=== PATIENT | male | born 1960 | race African-American/Black ===

== ENCOUNTER 2016-11-02 11:30 | Day surgery (SDC) | payer OTHER ==
[2016-10-29 10:35] VITALS: BMI 27.3
[2016-11-02] MEDS: GABAPENTIN 300 MG CAPSULE (FP) PO ONE ×2 (12:57→18:06)
[2016-11-02] MEDS ORDERED: LIDOCAINE 1%/EPI 1:100000 (50 ML MULTI DOSE VIAL) INF ONE (13:30)
[2016-11-02] MEDS ORDERED: MIDAZOLAM HCL 2 MG/2 ML SINGLE DOSE VIAL ONE (14:19)
--- NOTE | 2016-11-02 14:19 | HP ---
History & Physical Update - Physical Physical: No Change - Assessment Assessment: No Change - Plan Plan: No Change
[2016-11-02] MEDS ORDERED: LIDOCAINE HCL 2% 100 MG/5 ML DISP.SYRIN ONE (15:00)
[2016-11-02] MEDS ORDERED: ceFAZolin SODIUM 1 GM VIAL ONE (15:08)
[2016-11-02] MEDS ORDERED: ONDANSETRON 4 MG/2 ML VIAL ONE (15:14)
[2016-11-02] MEDS ORDERED: DEXAMETHASONE SOD PHOSPHATE 4 MG/1 ML VIAL ONE (15:14)
[2016-11-02] MEDS ORDERED: HYDROmorphone HCL/PF 1 MG/ML VIAL (FOR PYXIS CHARGING ONLY) ONE (15:24)
[2016-11-02] MEDS ORDERED: GLYCOPYRROLATE 0.2 MG/1 ML VIAL ONE (15:27)
[2016-11-02] MEDS ORDERED: NEOSTIGMINE METHYLSULFATE 0.5 MG/ML - 10 ML MDV ONE (15:27)
[2016-11-02] MEDS ORDERED: PROPOFOL 20 ML ONE ×5 (15:51→16:52)
[2016-11-02] MEDS ORDERED: GUM MASTIC/STORAX/MSAL/ALCOHOL 1 DRP DROPSBTL MC ONE (17:05)
[2016-11-02] MEDS ORDERED: BUPIVACAINE HCL/PF 0.25% (2.5MG/ML) 10 ML VIAL IJ ONE (17:09)
[2016-11-02] MEDS ORDERED: ONDANSETRON 4 MG/2 ML VIAL IVPUSH PRN (17:25)
[2016-11-02] MEDS ORDERED: ACETAMINOPHEN INJECTION 100 ML IVPB ONE (17:28)
--- NOTE | 2016-11-02 17:28 | OP ---
Operative Note - Note: Operative Date: 11/02/16 Pre-Operative Diagnosis: cervical stenosis Operation: anterior cervical fusion Post-Operative Diagnosis: Same as Pre-op Surgeon: Humberto Randolph Tool And Die Maker Apprentice: Eileen Costa Anesthesiologist/CALENDER MACHINE OPERATOR: Ramandeep Shetty Anesthesia: Spinal Specimens Removed: C5-C6, and C6-C7 disc Estimated Blood Loss (mls): 20 Fluid Volume Replaced (mls): 1,350 Operative Report Dictated: Yes
[2016-11-02] MEDS ORDERED: ACETAMINOPHEN 1000 MG/100 ML VIAL (NON FORMULARY) IVPB ONE ×2 (17:30→17:40)
[2016-11-02] MEDS ORDERED: LACTATED RINGERS SOLUTION 1,000 ML IV SCH ×2 (17:30→17:45)
--- NOTE | 2016-11-02 17:34 | SURG ---
Surgery Finish Photographer Note Finish Photographer: Eileen Costa PA-C Date of Service: 11/02/16 Diagnosis: cervical stenosis Procedure: anterior cervical fusion C5-C6 and C6-C7 I was present for the entirety of the operative procedure. For further detail, please refer to operative report. Visit type - Case Type Case Type: Scheduled Admission - Emergency Emergency Visit: No - New patient This patient is new to me today: Yes Date on this admission: 11/02/16 - Critical Care Critical Care patient: No
[2016-11-02] MEDS ORDERED: ONDANSETRON 4 MG/2 ML VIAL IVPB PRN (17:35)
[2016-11-02] MEDS ORDERED: oxyCODONE HCL 5 MG TABLET PO PRN (17:35)
[2016-11-02] MEDS ORDERED: CYCLOBENZAPRINE HCL 10 MG TABLET (FP) PO PRN (17:49)
[2016-11-02] MEDS: PANTOPRAZOLE 40 MG TABLET (FP) PO SCH (18:45)
[2016-11-02] MEDS: morphine CARPU-JECT 4 MG/1 ML DISP.SYRIN IVPUSH PRN ×2 (19:50→23:41)
[2016-11-02] MEDS: GABAPENTIN 300 MG CAPSULE (FP) PO SCH (21:44)
[2016-11-02] MEDS ORDERED: ATORVASTATIN CA 40 MG TABLET (FP) PO SCH (22:00)
[2016-11-02] MEDS ORDERED: NEBIVOLOL 10 MG TABLET (FP) PO SCH (22:00)
[2016-11-02] MEDS ORDERED: PATIENT'S OWN MEDICATION (NON-FORMULARY) (Mirabegron [Myrbetriq] 50 MG) PO SCH (22:00)
[2016-11-02] MEDS: CEFAZOLIN (PRE-DOCKED) 50 ML IVPB SCH (22:36)
[2016-11-02] MEDS ORDERED: ACETAMINOPHEN 325 MG TABLET (FP) PO PRN (23:55)
[2016-11-03] MEDS: morphine CARPU-JECT 4 MG/1 ML DISP.SYRIN IVPUSH PRN (02:50)
[2016-11-03] MEDS: CEFAZOLIN (PRE-DOCKED) 50 ML IVPB SCH (06:16)
[2016-11-03] MEDS: GABAPENTIN 300 MG CAPSULE (FP) PO SCH (06:16)
[2016-11-03] MEDS: oxyCODONE HCL 5 MG TABLET PO PRN ×2 (06:17→10:27)
[2016-11-03 06:25] VITALS: BP 124/61; PULSE 60; TEMP 99
[2016-11-03] MEDS ORDERED: LEVOTHYROXINE NA 75 MCG TABLET (FP) PO SCH (07:00)
--- NOTE | 2016-11-03 07:05 | DS ---
[id number] Note: Physical Exam: SUBJECTIVE: Patient seen and examined. POD #1 s/p ACDF C5-C6, and C6-C7. Doing well. wearing his soft cervical collar. Using his incentive spirometer. States he has been out of bed and ambulated hallways as instructed. Prior to surgical procedure, patient c/o numbness to left hand (first 3 digits). S/p procedure numbness has completely resolved. He is tolerating liquid diet. Denies n/v/f/c, CP, SOB or hoarsness. OBJECTIVE: Last Vital Signs Temp Pulse Resp BP Pulse Ox 99.0 F 60 18 124/61 98 // 06:24 11/03/16 06:24 11/03/16 06:24 11/03/16 06:24 11/02/16 20:43 PHYSICAL EXAM GENERAL: The patient is awake, alert, and fully oriented, in no acute distress. HEAD: Normal with no signs of trauma. EYES: PERRL, extraocular movements intact, sclera anicteric, conjunctiva clear. NECK: Trachea midline, supple. No hematoma. Dressing c/d/i. Tello dc'd on rounds LUNGS: CTA b/l anteriorly HEART: RRR EXTREMITIES: 2+ pulses, warm, well-perfused, no edema. NEUROLOGICAL: CN II - XII grossly intact. Normal speech, gait not observed. PSYCH: Normal mood, normal affect. SKIN: Warm, dry, normal turgor, no rashes or lesions noted. HOSPITAL COURSE: Date of Admission:02/17 Date of Discharge: 11/03/ The patient was admitted to the Med-Surg Unit after an elective repair of their cervical stenosis & radiculopathy. Now, s/p ACDF C5-C6, and C6-C7. The day of surgery, the patient ambulated the hallways with assistance. Narcotic and non- narcotic pain management control was achieved with an oral and IV approach. POD #1, the surgical drain was removed fully intact and without incident. An xray was obtained and confirmed hardware placement at (C5/6, C6/7), no fractures or dislocations. Debbie-operative IV ABX were administered. DVT prophylaxis was achieved with SCDs and early ambulation. The patient ambulated with Physical Therapy and no services were recommended upon discharge. Narcotic scripts and or muscle relaxants were checked with [employer] [employer] prior to escribe. The discharge instructions and an oral pain management plan were reviewed with the patient. All questions answered. Above plan discussed with Dr. Randolph and agreed. Minutes to complete discharge: 15 <Agustin Argueta P - Last Filed: 11/03/16 06:48> Physical Exam: SUBJECTIVE: Patient seen and examined OBJECTIVE: Vital Signs Temperature 99.0 F 11/03/16 06:24 Pulse Rate 60 11/03/16 06:24 Respiratory Rate 18 11/03/16 06:24 Blood Pressure 124/61 11/03/16 06:24 O2 Sat by Pulse Oximetry (%) 98 11/03/16 07:57 PHYSICAL EXAM GENERAL: The patient is awake, alert, and fully oriented, in no acute distress. HEAD: Normal with no signs of trauma. EYES: PERRL, extraocular movements intact, sclera anicteric, conjunctiva clear. ENT: Ears normal, nares patent, oropharynx clear without exudates, moist mucous membranes. NECK: Trachea midline, full range of motion, supple. LUNGS: Breath sounds equal, clear to auscultation bilaterally, no wheezes, no crackles, no accessory muscle use. HEART: Regular rate and rhythm, S1, S2 without murmur, rub or gallop. ABDOMEN: Soft, nontender, nondistended, normoactive bowel sounds, no guarding, no rebound, no hepatosplenomegaly, no masses. EXTREMITIES: 2+ pulses, warm, well-perfused, no edema. NEUROLOGICAL: Cranial nerves II through XII grossly intact. Normal speech, gait not observed. PSYCH: Normal mood, normal affect. SKIN: Warm, dry, normal turgor, no rashes or lesions noted. LABS HOSPITAL COURSE: Date of Admission:11/02/16 Date of Discharge: 11/03/16 The patient was admitted to the Med-Surg Unit after an elective repair of their C5-6 C6-7 herniated discs, s/p ACDF C5-6, C6-7 The day of surgery, the patient ambulated the hallways with assistance. Narcotic and non-narcotic pain management control was achieved with an oral and IV approach. POD #1, the surgical drain was removed fully intact and without incident. An xray was obtained and confirmed hardware placement at (level of ), no fractures or dislocations. Debbie-operative IV ABX were administered. DVT prophylaxis was achieved with SCDs and early ambulation. The patient ambulated with Physical Therapy and no services were recommended upon discharge. Narcotic scripts and or muscle relaxants were checked with [employer] [employer] prior to escibe. The discharge instructions and an oral pain management plan were reviewed with the patient. All questions answered. Above plan discussed with Dr. Randolph and agreed. Patient seen and examined Agree with Above D/C Planning <Humberto Randolph - Last Filed: 11/05/16 10:57> Visit type - Case Type Case Type: Scheduled Admission - New patient This patient is new to me today: Yes Date on this admission: 11/03/16 <Agustin Argueta - Last Filed: 11/03/16 06:48>
[2016-11-03] MEDS ORDERED: TAMSULOSIN HCL 0.4 MG CAP.ER.24H (FP) PO SCH (08:30)
[2016-11-03] MEDS: PANTOPRAZOLE 40 MG TABLET (FP) PO SCH (09:10)
[2016-11-03] MEDS ORDERED: VALSARTAN 160 MG TABLET (UD) PO SCH (10:00)
[2016-11-03] MEDS ORDERED: NIFEdipine E.R. 90 MG TABLET (FP) PO SCH (10:00)
--- NOTE | 2016-11-04 16:18 | PATH ---
Surgical Pathology Report Patient Name: SNEHA CHEN [facility]. Rec. #: [id number] /Age/Gender: 1960 (Age: 56) / M Account: [id number] Location: [facility] Taken: 11/02/2016 Received: 11/02/2016 Reported: 11/04/2016 Physicians: Humberto Randolph M.D. Specimen(s) Received C5-6, C6-7 DISCS Clinical History Cervical stenosis Final Diagnosis INTERVERTEBRAL DISC, C5-6 AND C6-7, PARTIAL EXCISION: PORTIONS OF INTERVERTEBRAL DISC. Electronically Signed Fidencio Van M.D. Gross Description Received in formalin, labeled "C5-6, C6-7 disc," is a 2.2 x 2.0 x 0.3 cm aggregate of garcia fragments of fibrocartilaginous tissue. The specimen is submitted in toto in one cassette. 11/03/201611/03/2016
--- NOTE | 2016-11-06 13:27 | OP ---
DATE OF OPERATION: 11/02/2016 PREOPERATIVE DIAGNOSIS: Spinal stenosis C5-C6, C6-C7. POSTOPERATIVE DIAGNOSIS: Spinal stenosis C5-C6, C6-C7. PROCEDURE PERFORMED: 1. Anterior cervical diskectomy and fusion C5-C6, anterior cervical diskectomy and fusion C6-C7. 2. Placement of instrumentation C5-C7. 3. Placement of prosthetic cages C5-C6, C6-C7. SURGEON: Humberto Randolph MD PROBATE LAWYER: AROLDO Prado ESTIMATED BLOOD LOSS: 50 mL. IV FLUIDS: Per Anesthesia. COMPLICATIONS: None. DISPOSITION: The patient was brought out to the PACU in stable condition. INDICATION FOR SURGERY: The patient is a 56-year-old gentleman who has been suffering from pain from his neck down his arm. X-rays and MRI were completed which noted that he has spinal stenosis of C5-C6 and C6-C7. He had gone through an exhaustive course of treatment for this including medications, physical therapy as well as injections, and unfortunately, the pain continued to persist despite all of this. At this point, risks, benefits, and alternatives were discussed, and the patient consented to surgery. DESCRIPTION OF PROCEDURE: The patient was brought to the operating room by the anesthesia staff. After appropriate patient identification was performed, general anesthesia was administered. Appropriate anesthetic lines were placed. SCDs were placed on the patient. Neuromonitoring leads were attached. He was placed supine onto the OR bed with his arms tucked in. A shoulder roll was placed underneath his shoulder to extend his neck to the point that he can tolerate in the preoperative holding area. A needle was taped onto his neck to angie off the C5-C6 level. An x-ray was taken to confirm this was correct. The needle was removed, and 10 mL of lidocaine with epinephrine was injected into his neck at this time. His neck was prepped and draped in a sterile manner. At this point, a time-out was completed. A 2-inch incision was made on the left side of his neck. Dissection was carried down to the platysma. The platysma was cut in line with the skin incision. Next, an internal between the sternocleidomastoid as well as strap muscles was developed. Next, an interval between the carotid sheath as well as trachea and esophagus was developed. Peanuts was used to elevate it off the prevertebral fascia. A spinal needle was placed into the C5-C6 disk. An x- ray was taken to confirm this was correct. Needle was removed, and the microscope was brought in. At this point, the longus colli muscles were elevated off. Retractor blades were placed, and a [place] pin was placed into body of C5 and placed into the body of C7. The disk was incised, and distraction was applied. At this point, using a series of pituitaries, Kerrison's and curettes, a diskectomy was completed. The endplates were decorticated. Cages filled with bone graft were placed into the disk spaces. A screw was placed into the body of C5. A screw was placed into the body of C6. A screw was placed into the body of C7. All extra instrumentation was removed. AP and lateral x-rays confirmed the instrumentation to be in good position. Final tightening was performed. The platysma was closed with 2-0 Vicryl suture, the skin was closed with 3-0 Monocryl suture. Dermabond was applied. Steri-Strips were applied. A sterile dressing was applied. The patient stayed supine on the OR bed, extubated in the OR, and brought to the PACU in stable condition. Julio [id number] MTDD
== END 2016-11-03 13:45 | disposition home or self-care (01) ==
LOC: FASU 11:30 → FM/S 18:37 → FASU 11-03 13:45
PROVIDERS: ATTEND Orthopaedic Surgery Orthopaedic Surgery of the Spine
PROC: 0RG20A0 Fusion of 2 or more Cervical Vertebral Joints with Interbody Fusion Device, Anterior Approach, Anterior Column, Open Approach (ICD-10-PCS; 2016-11-02)
PROC: 0RG20K0 Fusion of 2 or more Cervical Vertebral Joints with Nonautologous Tissue Substitute, Anterior Approach, Anterior Column, Open Approach (ICD-10-PCS; 2016-11-02)
PROC: 0RB30ZZ Excision of Cervical Vertebral Disc, Open Approach (ICD-10-PCS; principal; 2016-11-02 15:38)
DX: M48.02 Spinal stenosis, cervical region (principal)
CPT/HCPCS: 72050-TC; 76000-TC; 88304-TC; 94010; 94760; 97116-GP; 97162-PG

== ENCOUNTER 2017-04-29 06:46 | Day surgery (SDC) | payer OTHER ==
[2017-04-23 12:29] VITALS: BMI 28.0
[~2017-04-29 06:46] MED LIST: BUPIVACAINE HCL/PF 0.25% (2.5MG/ML) 10 ML VIAL IJ ONE; methylPREDNISolone ACET (DEPO) 40 MG/1 ML VIAL IM ONE
--- NOTE | 2017-04-29 06:52 | HP ---
History & Physical Update - History History: No Change - Physical Physical: No Change - Assessment Assessment: No Change - Plan Plan: No Change
[2017-04-29] MEDS ORDERED: oxyCODONE HCL 10 MG SUSTAINED ACTING TABLET PO STA (06:58)
[2017-04-29] MEDS ORDERED: CEFAZOLIN 2 GM in DEXTROSE 5%-WATER - 100 ML IVPB ONE (06:58)
[2017-04-29] MEDS ORDERED: MIDAZOLAM HCL 2 MG/2 ML SINGLE DOSE VIAL ONE ×3 (08:12→09:48)
[2017-04-29] MEDS ORDERED: LIDOCAINE HCL 1%, 10 MG/ML (50 mL VIAL) IJ ONE (08:50)
[2017-04-29] MEDS ORDERED: ceFAZolin SODIUM 1 GM VIAL ONE (08:54)
[2017-04-29] MEDS ORDERED: LIDOCAINE HCL/PF 2% SDV 5ML VIAL ONE (08:56)
[2017-04-29] MEDS ORDERED: ONDANSETRON 4 MG/2 ML VIAL ONE (08:57)
[2017-04-29] MEDS ORDERED: THROMBIN (BOVINE) 5,000 UNIT VIAL TP ONE (09:22)
[2017-04-29] MEDS ORDERED: GELATIN SPONGE,ABSORBABLE 1 GM PACKET TP ONE (09:24)
[2017-04-29] MEDS ORDERED: methylPREDNISolone ACET (DEPO) 40 MG/1 ML VIAL IM ONE (10:10)
[2017-04-29] MEDS ORDERED: BUPIVACAINE HCL/PF 0.25% (2.5MG/ML) 10 ML VIAL IJ ONE (10:11)
--- NOTE | 2017-04-29 10:24 | SURG ---
Surgery Orthotic Practitioner Note Orthotic Practitioner: Agustin Argueta PA-C Date of Service: 04/29/17 Diagnosis: L4/5 Spinal stenosis with radiculopathy Procedure: L4/5 laminectomy (bilateral) I was present for the entirety of the operative procedure. For further detail, please refer to operative report. Visit type - Case Type Case Type: Scheduled Admission - New patient This patient is new to me today: Yes Date on this admission: 04/29/17
--- NOTE | 2017-04-29 10:24 | OP ---
Operative Note - Note: Operative Date: 04/29/17 Pre-Operative Diagnosis: L4/5 Spinal stenosis with radiculopathy Operation: L4/5 laminectomy (bilateral) Post-Operative Diagnosis: Same as Pre-op Surgeon: Humberto Randolph Grinder Gear: Agustin Argueta Anesthesiologist/HAND SPRING REPAIRER: Beena Gil Anesthesia: Spinal Estimated Blood Loss (mls): 25 Fluid Volume Replaced (mls): 1,100 Operative Report Dictated: Yes
[2017-04-29] MEDS ORDERED: ACETAMINOPHEN 1000 MG/100 ML VIAL (NON FORMULARY) IVPB ONE ×2 (10:25→10:30)
[2017-04-29] MEDS ORDERED: traMADol HCL 50 MG TABLET PO ONE ×2 (10:25→11:13)
[2017-04-29] MEDS ORDERED: ACETAMINOPHEN INJECTION 100 ML IVPB ONE (10:27)
[2017-04-29] MEDS ORDERED: traMADol HCL 50 MG TABLET ONE (10:27)
--- NOTE | 2017-04-29 11:26 | OP ---
DATE OF OPERATION: 04/29/2017 PREOPERATIVE DIAGNOSIS: Spinal stenosis at L4-5. POSTOPERATIVE DIAGNOSIS: Spinal stenosis at L4-5. PROCEDURE PERFORMED: Revision laminectomy at L4-5. SURGEON: Humberto Randolph MD CARDIOVASCULAR TECH: AROLDO Colon ESTIMATED BLOOD LOSS: 50 mL INTRAVENOUS FLUIDS: Per Anesthesia. ANESTHESIA: Spinal. COMPLICATIONS: None. DISPOSITION: Patient brought to the PACU in stable condition. INDICATION FOR SURGERY: The patient is a 57-year-old gentleman who has been suffering from pain from his back down his leg. X-rays and MRI were completed, which noted that he had spinal stenosis at L4-5. He had gone through an exhaustive course of treatment for this, which included medication, physical therapy, as well as injections. Unfortunately, his pain continued to persist despite all this. At this point, risks, benefits, and alternatives were discussed, and the patient consented to surgery. DESCRIPTION OF OPERATION: Patient was brought to the operating room by the anesthesia staff. After appropriate patient identification was performed, spinal anesthesia was given. Appropriate anesthetic lines were placed. SCDs were placed on the patient. Patient was able to position himself prone onto the Dg frame and avoid all bony prominences. Two needles were placed into his back to angie off the L4- 5 segment, and x-ray was taken to confirm this as correct. The needles were removed, and 10 mL of lidocaine with epinephrine was injected into his back at this time. His back was prepped and draped in a sterile manner. At this point, timeout was completed. An incision was made through his previous scar at L4-5. Dissection was carried down to the fascia. Fascia was then split open at this time. A spinal needle was placed onto the L4 lamina. X-ray was taken to confirm this as the L4-5 level. At this point, the microscope was brought in. The interspinous ligament was cut. He had significant scar tissue at the level of the previous laminectomy. A bur was used to remove the lamina. The flavum was identified, was removed. A complete decompression was performed such that by the end of the procedure the L5 nerve root appeared to be well decompressed. All bleeding was well controlled at this time. Steroid was placed over the nerve root. FloSeal was placed over that. The fascia was closed with a No. 1 Vicryl suture. The subcutaneous tissues were closed with 2-0 Vicryl suture. Skin was closed with 3-0 Monocryl suture. Dermabond was applied. Steri-Strips were applied. A sterile dressing was applied. Patient was placed supine on the OR bed and brought to the PACU in stable condition. Julio [id number] MTDD
[2017-04-29] MEDS ORDERED: oxyCODONE HCL 5 MG TABLET PO PRN (11:27)
[2017-04-29] MEDS ORDERED: ONDANSETRON 4 MG/2 ML VIAL IVPUSH PRN (11:27)
[2017-04-29] MEDS ORDERED: LACTATED RINGERS SOLUTION 1,000 ML IV SCH (11:30)
[2017-04-29 13:09] VITALS: BP 116/78; PULSE 66; TEMP 98
== END 2017-04-29 13:00 | disposition home or self-care (01) ==
LOC: FASU 06:46
PROVIDERS: ATTEND Orthopaedic Surgery Orthopaedic Surgery of the Spine
PROC: 01NB0ZZ Release Lumbar Nerve, Open Approach (ICD-10-PCS; principal; 2017-04-29 08:15)
DX: M48.06 Spinal stenosis, lumbar region (principal)
CPT/HCPCS: 72100-TC; 94760